=== PATIENT | female | born 1960 | race Caucasian/White ===

== ENCOUNTER 2021-03-13 06:44 | Day surgery (SDC) | payer MEDICARE ==
[2021-03-09 15:36] LABS: BASOPHILS # (AUTO) 0.1 X10'3 (0-0.2); EOSINOPHILS # (AUTO) 0.2 X10'3 (0-0.9); MEAN PLATELET VOLUME 8.6 FL (7.4-10.4); MONOCYTES # (AUTO) 0.5 X10'3 (0-0.9); MONOCYTES % (AUTO) 6.8 % (2-12); PRE OP HEMOGLOBIN 14.3 g/dL (12.0-16.0); RED CELL DISTRIBUTION WIDTH 14.3 % (11.5-14.5)
[2021-03-09 15:39] LABS: ALBUMIN 3.1 G/DL (3.4-5.0); ALBUMIN/GLOBULIN RATIO 0.8 (1.1-1.5); ALKALINE PHOSPHATASE 99 IU/L (46-116); BASOPHILS % (AUTO) 0.8 % (0-1); BLOOD UREA NITROGEN 10 MG/DL (7-18); BUN/CREATININE RATIO 10.8 (6.6-38.0); CALCIUM 8.4 MG/DL (8.5-10.1); CHLORIDE 107 MMOL/L (99-107); CREATININE 0.93 MG/DL (0.40-0.90); EOSINOPHILS % (AUTO) 2.5 % (0-6); LYMPHOCYTES # (AUTO) 1.9 X10'3 (1.1-4.8); LYMPHOCYTES % (AUTO) 24.1 % (21-51); MEAN CORPUSCULAR HEMOGLOBIN 28.9 PG (27.0-31.0); MEAN CORPUSCULAR HGB CONC 33.3 g/dL (33.0-36.5); NEUTROPHILS # (AUTO) 5.1 X10'3 (1.8-7.7); NEUTROPHILS % (AUTO) 65.8 % (42-75); PRE OP ALT 19 U/L (30-65); PRE OP ANION GAP 9 (8-16); PRE OP AST 12 U/L (10-37); PRE OP BILIRUB, TOTAL 0.3 MG/DL (0.0-1.0); PRE OP PLATELET COUNT 171 X10'3 (140-440); PRE OP POTASSIUM 4.5 MMOL/L (3.4-5.1); PRE OP SODIUM 141 MMOL/L (135-145); RED BLOOD COUNT 4.94 X10'6 (4.20-5.60); TOTAL CARBON DIOXIDE 24.7 MMOL/L (24-32); TOTAL PROTEIN 6.9 G/DL (6.4-8.2); eGFR 61 ML/MIN
[2021-03-09 15:45] LABS: PRE OP GLUCOSE 204 MG/DL (70-104)
[~2021-03-13] VITALS: Ht 162.6 cm; Wt 87.7 kg
[~2021-03-13 06:44] MED LIST: CARV3.123 PO; DOCUMENT DATE & TIME OF BETA-BLOCKER PO ONE; GABA300C PO; HYDR-3972 PO; INSU100V12 SQ; LEVO75TA7 PO; LISI40TA13 PO; NOVLG SQ; OMEP40CA21 PO; PARO40TA4 PO; SEMA0.25 SQ; SIMV40TA PO; albuterol 2.5 MG/3 ML nebule NEB ONE; cefazolin/dext.iso 2gm/50ml 50 ML IV ONE; famotidine 20mg tablet PO ONE; ringers solution, lacted 1,000 ML IV SCH
[2021-03-13] MEDS ORDERED: BUPIVAcaine/PF 2.5mg/ml (0.25%) 10ml vial ONE (06:45)
[2021-03-13 06:55] VITALS: BP 144/82
[2021-03-13] MEDS ORDERED: labetalol 20mg/4ml (5mg/ml) syringe IV PRN (07:20)
[2021-03-13] MEDS ORDERED: hydrALAZINE 20mg/ml inj. IV PRN (07:20)
[2021-03-13] MEDS ORDERED: morphine 4 MG/ML inj SYRINge IV PRN (07:20)
[2021-03-13] MEDS ORDERED: LIDOcaine 0.5% (5mg/ml) 50ml vial ONE (07:20)
[2021-03-13] MEDS ORDERED: fentaNYL/PF 50MCG/1 ML 2ML syringe IV PRN ×2 (07:20)
[2021-03-13] MEDS ORDERED: ondansetron/PF 4mg/2ml inj IV PRN (07:20)
[2021-03-13] MEDS ORDERED: morphine 2 MG/ML inj. syringe IV PRN (07:20)
[2021-03-13] MEDS ORDERED: ringers solution, lacted 1,000 ML IV SCH (07:20)
[2021-03-13] MEDS ORDERED: MIDAZolam 1mg/ml 10ml vial ONE (07:22)
[2021-03-13] MEDS ORDERED: fentaNYL/PF 50MCG/1 ML 2ML syringe ONE ×2 (07:23→09:21)
[2021-03-13] MEDS ORDERED: propofol inj 20 ML IV ONE (07:48)
[2021-03-13] MEDS ORDERED: LIDOcaine 2% (20mg/ml) 5ml vial ONE (07:48)
[2021-03-13] MEDS ORDERED: midazolam 1 mg/ML 2ml injection ONE (09:21)
[2021-03-13 09:34] VITALS: BP 115/72
--- NOTE | 2021-03-13 09:34 | NUR ---
Received from OR via [facility] IN STABLE CONDITION , accompanied by Anesthesiologist and HAIR OR BEAUTY SALON MANAGER report given by HAIR OR BEAUTY SALON MANAGER AND Anesthesiolgist. Addendum: 03/13/21 at 0954 by Fawn Rodriguez RN Amended: Links added.
[2021-03-13 09:40] VITALS: BP 118/65
[2021-03-13 09:50] VITALS: BP 87/58
[2021-03-13 10:00] VITALS: BP 99/66
[2021-03-13 10:10] VITALS: BP 120/60
--- NOTE | 2021-03-13 10:24 | NUR ---
PATIENT DISCHARGED FROM PACU IN STABLE CONDITION AFTER WRITTEN AND VERBAL DISCHARGE INSTRUCTIONS GIVEN. PATIENT GAVE VERBAL UNDERSTANDING OF INSTRUCTIONS GIVEN. PATIENT LEFT FACILITY VIA WHEELCHAIR WITH RN. Addendum: 03/13/21 at 1046 by Fawn Rodriguez RN Amended: Links added.
== END 2021-03-13 10:24 | disposition home or self-care (01) ==
LOC: PAS 06:44
PROVIDERS: ATTEND Orthopaedic Surgery Hand Surgery
DX: G56.02 Carpal tunnel syndrome, left upper limb (principal); G47.30 Sleep apnea, unspecified; I10 Essential (primary) hypertension; F41.9 Anxiety disorder, unspecified; F32.9 Major depressive disorder, single episode, unspecified; F43.10 Post-traumatic stress disorder, unspecified; M19.90 Unspecified osteoarthritis, unspecified site; E03.9 Hypothyroidism, unspecified; K21.9 Gastro-esophageal reflux disease without esophagitis; E11.9 Type 2 diabetes mellitus without complications; E66.9 Obesity, unspecified; Z68.33 Body mass index [BMI] 33.0-33.9, adult; Z86.19 Personal history of other infectious and parasitic diseases; Z20.822 Contact with and (suspected) exposure to COVID-19; Z79.899 Other long term (current) drug therapy; Z88.5 Allergy status to narcotic agent; Z88.8 Allergy status to other drugs, medicaments and biological substances; Z98.890 Other specified postprocedural states; Z72.89 Other problems related to lifestyle; F17.210 Nicotine dependence, cigarettes, uncomplicated; Z79.84 Long term (current) use of oral hypoglycemic drugs; Z98.1 Arthrodesis status; Z98.84 Bariatric surgery status
CPT/HCPCS: 29848; 36415; 80053; 82948; 85025; 93005; J2001; J2250; J2704; J3010; J3490; U0003; U0005; Z7506; Z7512; A4215; A7000; J7120

== ENCOUNTER 2021-10-18 15:41 | Emergency (ER) | payer MEDICARE ==
[~2021-10-18] VITALS: Ht 162.6 cm; Wt 86.4 kg
[~2021-10-18 15:41] MED LIST changes: -DOCUMENT DATE & TIME OF BETA-BLOCKER PO ONE; -albuterol 2.5 MG/3 ML nebule NEB ONE; -cefazolin/dext.iso 2gm/50ml 50 ML IV ONE; -famotidine 20mg tablet PO ONE; -ringers solution, lacted 1,000 ML IV SCH
[2021-10-18 15:56] VITALS: BP 169/91
--- NOTE | 2021-10-18 17:36 | NUR ---
VASCULAR AT [facility]
== END 2021-10-18 18:24 | disposition home or self-care (01) ==
LOC: ER 15:41
DX: M71.21 Synovial cyst of popliteal space [Baker], right knee (principal); E78.00 Pure hypercholesterolemia, unspecified; I10 Essential (primary) hypertension; E11.9 Type 2 diabetes mellitus without complications; F17.200 Nicotine dependence, unspecified, uncomplicated; Z56.0 Unemployment, unspecified; Z98.891 History of uterine scar from previous surgery; Z98.84 Bariatric surgery status; Z79.4 Long term (current) use of insulin; Z79.899 Other long term (current) drug therapy
CPT/HCPCS: 93971; 99284